=== PATIENT | female | born 1955 | race Caucasian/White ===

== ENCOUNTER 2022-11-06 19:29 | Inpatient (IN) | payer BC ==
[~2022-11-06 19:29] MED LIST: Iopamidol-370 76% 500 ML MDV (1 ML CHARGE) ONE
[2022-11-06] MEDS ORDERED: Sodium Bicarb 50 MEQ/50 ML VIAL ONE (19:58)
[2022-11-06 20:23] LABS: Analyzer IN Cardio ER; Base Excess (BEa) -19.8 mEq/L (-2.0 to +3.0); CO2 Tension 43.8 mmHg (35.0-45.0); Calcium, Ionized (arterial) 1.25 mmol/L (1.12-1.30); Carboxyhemoglobin (COHb) 0.3 gm% (0.0-3.0); O2 Tension (PaO2), arterial 330.3 mmHg (> 80.0); Potassium - ABG Lab 5.69 mmol/L (3.70-5.30)
[2022-11-06] MEDS ORDERED: Magnesium 2 GM/50 ML BAG (IN WATER) ONE (20:23)
[2022-11-06 20:25] LABS: Analyzer IN Cardio ER; Base Excess -17.4 mEq/L (-2.0 to +3.0); Chloride (VBG) 105 mmol/L (98-106); Hemoglobin (Hb) 15.3 g/dL (11.7-16.1); Potassium (VBG) 5.53 mmol/L (3.70-5.30); Sodium 138.9 mmol/L (133-146)
[2022-11-06 20:27] LABS: Puncture Site RBA; pH, Arterial 7.02 (7.35-7.45)
[2022-11-06 20:27] LABS: Hemoglobin 14.6 g/dL (12.0-16.0); Mean Corpuscular HGB CONC 34.2 g/dL (32.0-36.0); Mean Corpuscular Hemoglobin 31.8 pg (27.0-31.0); Mean Platelet Volume 6.7 fL (7.4-10.4); Platelet Count 132 10x3/uL (130-400); RBC Distribution Width 13.1 % (11.5-14.5); Red Blood Cell (RBC) Count 4.59 mill/uL (4.20-5.40)
[2022-11-06 20:28] LABS: Actual Bicarbonate (HCO3v) 14 mEq/L (22-28)
[2022-11-06 20:29] LABS: Calcium, Ionized (venous) 1.66 mmol/L (1.16-1.32)
[2022-11-06] MEDS ORDERED: Cefepime 2 GM VIAL ONE (20:39)
[2022-11-06 20:44] LABS: ALT (SGPT) 356 U/L (8-55); AST (SGOT) 396 U/L (5-34); Albumin 3.2 g/dL (3.4-4.8); Alkaline Phosphatase 190 U/L (40-110); Anion Gap 25 mmol/L (10-20); BUN (Urea Nitrogen) 19 mg/dL (9.8-20.1); Bilirubin, Total 0.5 mg/dL (0.2-1.2); Calc. Creatinine Clearance 0 mL/min (70-130); Calcium 9.4 mg/dL (7.8-10.44); Carbon Dioxide 14 mmol/L (23-31); Chloride 106 mmol/L (98-107); Estimated GFR 33; Globulin 2.7 g/dL (2.4-3.5); Glucose 369 mg/dL (80-115); Potassium 5.6 mmol/L (3.5-5.1); Protein, Total 5.9 g/dL (5.8-8.1); Sodium 139 mmol/L (136-145)
[2022-11-06 20:47] LABS: Analyzer IN Cardio ER; Base Excess (BEa) -16.8 mEq/L (-2.0 to +3.0); CO2 Tension 42.1 mmHg (35.0-45.0); Carboxyhemoglobin (COHb) 0.3 gm% (0.0-3.0); Hemoglobin (Hb) 15.4 g/dL (12.0-16.0); O2 Tension (PaO2), arterial 86.9 mmHg (> 80.0); Potassium - ABG Lab 5.47 mmol/L (3.70-5.30)
[2022-11-06 20:52] LABS: Band 10 % (5-11); Lymphocytes 18 % (21-51); MDiff Complete? YES; Metamyelocyte 3 % (0-0); Monocytes 4 % (0-10); Neutrophil 64 % (42-75); Platelet Morphology Comment Appears Adequate; RBC Morphology Normal
[2022-11-06] MEDS ORDERED: methylPREDNISolone Sod Succ/PF 125 MG/2 ML VIAL ONE (21:07)
[2022-11-06] MEDS ORDERED: Propofol 1,000 MG/100 ML VIAL IV ONE ×2 (21:29)
[2022-11-06] MEDS ORDERED: Fentanyl CADD 100 ML IV SCH (21:45)
[2022-11-06] MEDS ORDERED: Insulin Regular 300 UNITS/3 ML VIAL SC PRN (21:47)
[2022-11-06] MEDS ORDERED: Sodium Chloride For Inhalation 0.9% 3 ML NEB ONE (21:48)
[2022-11-06] MEDS ORDERED: Insulin Regular 300 UNITS/3 ML VIAL SC SCH (22:00)
[2022-11-06] MEDS ORDERED: HumaLOG 300 UNITS/3 ML VIAL SC PRN (22:03)
[2022-11-06] MEDS ORDERED: Dextrose 5% in Water 1,000 ML IV PRN (22:03)
[2022-11-06] MEDS ORDERED: Dextrose 50% Abboject 50 ML SYRINGE SLOW IVP PRN (22:03)
[2022-11-06 22:07] LABS: Analyzer IN Cardio ER; Base Excess (BEa) -13.4 mEq/L (-2.0 to +3.0); CO2 Tension 38.7 mmHg (35.0-45.0); Calcium, Ionized (arterial) 1.36 mmol/L (1.12-1.30); Carboxyhemoglobin (COHb) 0.3 gm% (0.0-3.0); Hemoglobin (Hb) 15.4 g/dL (12.0-16.0); O2 Tension (PaO2), arterial 93.9 mmHg (> 80.0); Potassium - ABG Lab 4.63 mmol/L (3.70-5.30)
[2022-11-06 22:09] LABS: ALV-art Gradient 573.475 mmHg (0-20); Actual Bicarbonate (HCO3a) 12.5 mEq/L (22-28); Puncture Site RBA; pH, Arterial 7.09 (7.35-7.45)
[2022-11-06 22:10] LABS: Actual Bicarbonate (HCO3a) 14.2 mEq/L (22-28); Puncture Site Arterial Line; pH, Arterial 7.18 (7.35-7.45)
[2022-11-06 22:11] LABS: ALV-art Gradient 570.725 mmHg (0-20)
[2022-11-06] MEDS ORDERED: Amiodarone 150 MG in Dextrose 5% in Water 100 ML IVPB SCH (22:15)
[2022-11-06] MEDS ORDERED: Amiodarone 450 MG in Dextrose 5% in Water 250 ML IVPB SCH (22:30)
[2022-11-06 22:50] LABS: Bacteria/HPF None Seen HPF (None Seen); Bilirubin Negative (Negative); Blood, Urine 1+ (Negative); Clarity Clear (Clear); Glucose, Urine (Dipstick) Normal (Negative); Ketone, Urine Negative (Negative); Leukocyte Negative Leu/uL (Negative); Nitrite Negative (Negative); Protein, Urine (Dipstick) 20 mg/dL (Neg-Trace); RBC/HPF 0-3 HPF (0-3); Specific Gravity, Urine 1.027 (1.002-1.036); Squamous Epithelial None Seen HPF (0-3); Urobilinogen Normal mg/dL (Less than 2); WBC/HPF 0-3 HPF (0-3)
[2022-11-06] MEDS ORDERED: Lactated Ringer's 1,000 ML IV SCH (23:00)
[2022-11-06 23:58] LABS: ALT (SGPT) 425 U/L (8-55); AST (SGOT) 639 U/L (5-34); Albumin 2.4 g/dL (3.4-4.8); Alkaline Phosphatase 188 U/L (40-110); Anion Gap 20 mmol/L (10-20); BUN (Urea Nitrogen) 23 mg/dL (9.8-20.1); Bilirubin, Total 0.7 mg/dL (0.2-1.2); Calc. Creatinine Clearance 0 mL/min (70-130); Calcium 8.7 mg/dL (7.8-10.44); Carbon Dioxide 14 mmol/L (23-31); Chloride 113 mmol/L (98-107); Estimated GFR 30; Globulin 2.6 g/dL (2.4-3.5); Glucose 364 mg/dL (80-115); Potassium 4.6 mmol/L (3.5-5.1); Sodium 142 mmol/L (136-145)
[2022-11-07] LABS: Lactic Acid 7.1 mmol/L (0.5-2.2); Troponin I 1.837 ng/mL (< 0.028)
[2022-11-07 00:47] VITALS: BMI 52.0
[2022-11-07] MEDS ORDERED: Ipratropium/Albuterol 3 ML NEB NEB SCH (01:00)
[2022-11-07] MEDS ORDERED: Lorazepam 2 MG/ML VIAL SLOW IVP PRN (01:21)
[2022-11-07] MEDS ORDERED: Morphine 2 MG/ML VIAL SLOW IVP PRN (01:21)
[2022-11-07] MEDS ORDERED: FLU VACC QS2022-23(65YR UP)/PF 240 MCG/0.7 ML SYRINGE IM ONE (09:00)
[2022-11-07] MEDS ORDERED: Cefepime 1 GM in Sodium Chloride 0.9% 100 ML IVPB SCH (09:00)
[2022-11-07] MEDS ORDERED: Vancomycin 2 GM in Premix Bag 1 BAG IVPB SCH (09:00)
[2022-11-07] MEDS ORDERED: VANCOMYCIN 1.25 GM/250 ML BAG 1.25 GM in Premix Bag 1 BAG IVPB SCH (22:00)
== END 2022-11-07 01:50 | disposition expired | DRG 208 ==
LOC: ERS 19:29 → CCU 21:36
PROVIDERS: ADMIT Family Medicine; ATTEND Family Medicine
PROC: 5A1935Z Respiratory Ventilation, Less than 24 Consecutive Hours (ICD-10-PCS; principal; 2022-11-06)
PROC: 5A2204Z Restoration of Cardiac Rhythm, Single (ICD-10-PCS; 2022-11-06)
PROC: 3E043XZ Introduction of Vasopressor into Central Vein, Percutaneous Approach (ICD-10-PCS; 2022-11-06)
PROC: 03HY32Z Insertion of Monitoring Device into Upper Artery, Percutaneous Approach (ICD-10-PCS; 2022-11-06)
PROC: 0D9670Z Drainage of Stomach with Drainage Device, Via Natural or Artificial Opening (ICD-10-PCS; 2022-11-06)
PROC: 0BH17EZ Insertion of Endotracheal Airway into Trachea, Via Natural or Artificial Opening (ICD-10-PCS; 2022-11-06)
PROC: 06HY33Z Insertion of Infusion Device into Lower Vein, Percutaneous Approach (ICD-10-PCS; 2022-11-06)
PROC: 3E03329 Introduction of Other Anti-infective into Peripheral Vein, Percutaneous Approach (ICD-10-PCS; 2022-11-06)
PROC: 5A12012 Performance of Cardiac Output, Single, Manual (ICD-10-PCS; 2022-11-06)
PROC: 4A133R1 Monitoring of Arterial Saturation, Peripheral, Percutaneous Approach (ICD-10-PCS; 2022-11-06)
DX: I26.99 Other pulmonary embolism without acute cor pulmonale (principal); A41.9 Sepsis, unspecified organism; J96.01 Acute respiratory failure with hypoxia; K72.00 Acute and subacute hepatic failure without coma; J18.9 Pneumonia, unspecified organism; E87.4 Mixed disorder of acid-base balance; I47.1 Supraventricular tachycardia; G93.1 Anoxic brain damage, not elsewhere classified; N17.9 Acute kidney failure, unspecified; I46.8 Cardiac arrest due to other underlying condition; Z66 Do not resuscitate; Z51.5 Encounter for palliative care; J45.909 Unspecified asthma, uncomplicated; R57.0 Cardiogenic shock; R74.01 Elevation of levels of liver transaminase levels; I48.0 Paroxysmal atrial fibrillation; E87.5 Hyperkalemia; R73.9 Hyperglycemia, unspecified; R77.8 Other specified abnormalities of plasma proteins; Z80.0 Family history of malignant neoplasm of digestive organs; Z82.49 Family history of ischemic heart disease and other diseases of the circulatory system
CPT/HCPCS: 31500; 36416; 36556; 36600; 36620; 51702; 70450; 71045; 71275; 74018; 80053; 81001; 82553; 82805; 83605; 84484; 85025; 87040; 93005; 94002; 94003; 94640; 94644; 96365; 96366; 96367; 96368; 96375; J0282; J0692; J2060; J2704; J2930; J3010; J3370; J3475; J7030; J7070; J7120; J7611; J7620; Q9967